=== PATIENT | female | born 1955 | race Caucasian/White ===

== ENCOUNTER 2023-09-23 16:53 | Emergency (ER) | payer MEDICARE, SELFPAY ==
[2023-09-23] VITALS (22 sets, daily range): BP systolic 122–160; BP diastolic 57–76; PULSE 88–116; RESP 11–24; TEMP 36.6; O2SAT 93–97; BMI 35.9
[2023-09-23] MEDS: EPINEPHrine 1 MG/ML 0.5 MG IM (17:03)
[2023-09-23] MEDS: methylPREDNISolone 125 MG/2 ML VIAL IV (17:05)
[2023-09-23] MEDS: diphenhydrAMINE 50 MG/ML VIAL IV (17:06)
[2023-09-23] MEDS: FAMOTIDINE 20 MG/2 ML VIAL IV (17:07)
--- NOTE | 2023-09-23 17:19 | PC.NURSE ---
Upon arrival patient has facial swelling, lip swelling, attempting to clear throat multiple times and reports difficulty breathing. Pt reports hives on neck and under breasts. Provider and multiple nurses at bedside to assess and treat. Pt reports improvement after medications given. Call light within reach and encouraged to use for any needs or any changes.
--- NOTE | 2023-09-23 17:21 | ED.ALLEREA ---
HPI - Allergic Reaction <Rosalba Hahn DO - Last Filed: 09/24/23 08:38> General Chief complaint: Allergic Reaction Stated complaint: allergic reaction to food Time Seen by Provider: 09/23/23 17:09 Source: patient and family Mode of arrival: Ambulatory History of Present Illness HPI narrative: Patient is a 67-year-old female history of diabetes presents today with anaphylactic like reaction. She is not had anaphylaxis prior. She reports that she ate a candy in about 30 minutes later started having tongue swelling lip swelling throat swelling. She is itchy all over. She has no new medications. She denies any sort of new food she is unsure what candy she ate. Related Data Previous Rx's Medication Instructions Recorded epinephrine 0.3 mg/0.3 mL 0.3 mg (0.3 mL) IM Q5-15M PRN 09/23/23 injection, auto-injector (EpiPen anaphylaxis #2 ea 2-Gibran) prednisone 20 mg tablet 20 mg PO BID 3 days #6 tabs 09/23/23 Allergies Allergy/AdvReac Type Severity Reaction Status Date / Time bee venom protein (honey bee) Allergy Severe Anaphylaxis Verified 09/23/23 17:12 codeine Allergy Severe Anaphylaxis Verified 09/23/23 17:11 latex Allergy Severe Anaphylaxis Verified 09/23/23 17:31 ginkgo biloba AdvReac Intermediate Verified 09/23/23 17:31 lisinopril AdvReac Intermediate Cough Verified 09/23/23 17:13 Hi Chew Candy Allergy Severe Anaphylaxis Uncoded 09/23/23 17:14 Patient History <Rosalba Hahn DO - Last Filed: 09/24/23 08:38> Social History Smoking Status: Never smoker Smoking Status: Never smoker alcohol intake frequency: a few times a week Substance Use Type: does not use Exam <Rosalba Hahn DO - Last Filed: 09/24/23 08:38> Initial Vital Signs Initial Vital Signs: Vital Signs Temperature 97.8 F 09/23/23 17:05 Pulse Rate 116 H 09/23/23 17:05 Respiratory Rate 24 09/23/23 17:05 Blood Pressure 159/76 H 09/23/23 17:05 Pulse Oximetry 96 09/23/23 17:05 Oxygen Delivery Method Room Air 09/23/23 17:05 GENERAL: Moderate to severe respiratory distress HEENT: Head atraumatic,EOMI, pupils reactive, face symmetric, lips are swollen tongue minimally swollen no stridor CARDIOVASCULAR: Regular rate and rhythm without murmurs, rubs or gallops. RESPIRATORY: Able to speak tachypneic no wheezing rales or rhonchi ABDOMEN: Soft, nontender. Normoactive bowel sounds all 4 quadrants. No guarding or rebound. EXTREMITIES: Normal range of motion, no clubbing or edema. Neurovascularly intact NEUROLOGICAL: Alert and oriented x4. SKIN: Warm, dry, no laceration, no petechiae, no rashes or lesions. <Daria Valdes, DO - Last Filed: 09/23/23 21:57> Initial Vital Signs Initial Vital Signs: Vital Signs Temperature 97.8 F 09/23/23 17:05 Pulse Rate 116 H 09/23/23 17:05 Respiratory Rate 24 09/23/23 17:05 Blood Pressure 159/76 H 09/23/23 17:05 Pulse Oximetry 96 09/23/23 17:05 Oxygen Delivery Method Room Air 09/23/23 17:05 Course <Rosalba Hahn, DO - Last Filed: 09/24/23 08:38> Orders Ordered: Discontinued Medications Diphenhydramine HCl (Diphenhydramine 50 Mg/Ml Vial) 50 mg IV NOW ONE Stop: 09/23/23 17:23 Last Admin: 09/23/23 17:06 Dose: 50 mg Documented By: SB Epinephrine HCl (Epinephrine 1 Mg/Ml) 0.5 mg IM NOW ONE Stop: 09/23/23 17:22 Last Admin: 09/23/23 17:03 Dose: 0.5 mg Documented By: SB Famotidine (Famotidine 20 Mg/2 Ml Vial) 20 mg IV NOW JEMIMA Last Admin: 09/23/23 17:07 Dose: 20 mg Documented By: SB Methylprednisolone (Methylprednisolone 125 Mg/2 Ml Vial) 125 mg IV NOW ONE Stop: 09/23/23 17:23 Last Admin: 09/23/23 17:05 Dose: 125 mg Documented By: SB Vital Signs Vital signs: Vital Signs - 8 hr 09/23/23 17:05 09/23/23 17:05 09/23/23 17:10 Temperature 97.8 F Pulse Rate 116 H 114 H 95 H Respiratory Rate 24 20 Blood Pressure 159/76 H Pulse Oximetry 96 97 97 Oxygen Delivery Method Room Air Room Air 09/23/23 17:10 09/23/23 17:15 09/23/23 17:15 Temperature Pulse Rate 92 H Respiratory Rate 12 Blood Pressure 155/72 H 149/57 H Pulse Oximetry 95 Oxygen Delivery Method 09/23/23 17:20 09/23/23 17:20 09/23/23 17:25 Temperature Pulse Rate 88 90 Respiratory Rate 14 22 Blood Pressure 141/65 H Pulse Oximetry 95 95 Oxygen Delivery Method Room Air 09/23/23 17:25 09/23/23 17:30 09/23/23 17:30 Temperature Pulse Rate 91 H Respiratory Rate 22 Blood Pressure 141/63 H 143/63 H Pulse Oximetry 96 Oxygen Delivery Method 09/23/23 17:35 09/23/23 17:35 09/23/23 17:40 Temperature Pulse Rate 92 H 91 H Respiratory Rate 16 18 Blood Pressure 133/63 Pulse Oximetry 95 95 Oxygen Delivery Method Room Air 09/23/23 17:40 09/23/23 17:45 09/23/23 17:45 Temperature Pulse Rate 92 H Respiratory Rate 13 Blood Pressure 145/58 H 138/62 Pulse Oximetry 95 Oxygen Delivery Method 09/23/23 17:50 09/23/23 17:50 09/23/23 17:55 Temperature Pulse Rate 93 H 96 H Respiratory Rate 23 17 Blood Pressure 148/67 H Pulse Oximetry 96 95 Oxygen Delivery Method 09/23/23 17:55 09/23/23 18:00 09/23/23 18:00 Temperature Pulse Rate 97 H Respiratory Rate 24 Blood Pressure 153/67 H 149/66 H Pulse Oximetry 96 Oxygen Delivery Method 09/23/23 18:05 09/23/23 18:05 09/23/23 18:10 Temperature Pulse Rate 97 H Respiratory Rate 22 Blood Pressure 160/70 H 142/64 H Pulse Oximetry 96 Oxygen Delivery Method 09/23/23 18:10 09/23/23 18:15 09/23/23 18:15 Temperature Pulse Rate 96 H 97 H Respiratory Rate 17 16 Blood Pressure 150/67 H Pulse Oximetry 96 95 Oxygen Delivery Method 09/23/23 18:20 09/23/23 18:20 09/23/23 18:25 Temperature Pulse Rate 97 H 97 H Respiratory Rate 11 L 20 Blood Pressure 155/68 H Pulse Oximetry 94 95 Oxygen Delivery Method 09/23/23 18:25 09/23/23 18:30 09/23/23 18:30 Temperature Pulse Rate 96 H Respiratory Rate 20 Blood Pressure 148/65 H 145/63 H Pulse Oximetry 95 Oxygen Delivery Method 09/23/23 18:35 09/23/23 18:35 09/23/23 18:40 Temperature Pulse Rate 93 H 93 H Respiratory Rate 24 14 Blood Pressure 149/65 H Pulse Oximetry 94 94 Oxygen Delivery Method 09/23/23 18:40 09/23/23 18:45 09/23/23 18:45 Temperature Pulse Rate 93 H Respiratory Rate 17 Blood Pressure 141/65 H 122/61 Pulse Oximetry 95 Oxygen Delivery Method 09/23/23 18:50 09/23/23 18:50 Temperature Pulse Rate 93 H Respiratory Rate 15 Blood Pressure 139/65 Pulse Oximetry 93 Oxygen Delivery Method <Daria Valdes, - Last Filed: 09/23/23 21:57> Orders Ordered: Discontinued Medications Diphenhydramine HCl (Diphenhydramine 50 Mg/Ml Vial) 50 mg IV NOW ONE Stop: 09/23/23 17:23 Last Admin: 09/23/23 17:06 Dose: 50 mg Documented By: FRACISCO Epinephrine HCl (Epinephrine 1 Mg/Ml) 0.5 mg IM NOW ONE Stop: 09/23/23 17:22 Last Admin: 09/23/23 17:03 Dose: 0.5 mg Documented By: FRACISCO Famotidine (Famotidine 20 Mg/2 Ml Vial) 20 mg IV NOW JEMIMA Last Admin: 09/23/23 17:07 Dose: 20 mg Documented By: FRACISCO Methylprednisolone (Methylprednisolone 125 Mg/2 Ml Vial) 125 mg IV NOW ONE Stop: 09/23/23 17:23 Last Admin: 09/23/23 17:05 Dose: 125 mg Documented By: FRACISCO Vital Signs Vital signs: Vital Signs - 8 hr 09/23/23 17:05 09/23/23 17:05 09/23/23 17:10 Temperature 97.8 F Pulse Rate 116 H 114 H 95 H Respiratory Rate 24 20 Blood Pressure 159/76 H Pulse Oximetry 96 97 97 Oxygen Delivery Method Room Air Room Air 09/23/23 17:10 09/23/23 17:15 09/23/23 17:15 Temperature Pulse Rate 92 H Respiratory Rate 12 Blood Pressure 155/72 H 149/57 H Pulse Oximetry 95 Oxygen Delivery Method 09/23/23 17:20 09/23/23 17:20 09/23/23 17:25 Temperature Pulse Rate 88 90 Respiratory Rate 14 22 Blood Pressure 141/65 H Pulse Oximetry 95 95 Oxygen Delivery Method Room Air 09/23/23 17:25 09/23/23 17:30 09/23/23 17:30 Temperature Pulse Rate 91 H Respiratory Rate 22 Blood Pressure 141/63 H 143/63 H Pulse Oximetry 96 Oxygen Delivery Method 09/23/23 17:35 09/23/23 17:35 09/23/23 17:40 Temperature Pulse Rate 92 H 91 H Respiratory Rate 16 18 Blood Pressure 133/63 Pulse Oximetry 95 95 Oxygen Delivery Method Room Air 09/23/23 17:40 09/23/23 17:45 09/23/23 17:45 Temperature Pulse Rate 92 H Respiratory Rate 13 Blood Pressure 145/58 H 138/62 Pulse Oximetry 95 Oxygen Delivery Method 09/23/23 17:50 09/23/23 17:50 09/23/23 17:55 Temperature Pulse Rate 93 H 96 H Respiratory Rate 23 17 Blood Pressure 148/67 H Pulse Oximetry 96 95 Oxygen Delivery Method 09/23/23 17:55 09/23/23 18:00 09/23/23 18:00 Temperature Pulse Rate 97 H Respiratory Rate 24 Blood Pressure 153/67 H 149/66 H Pulse Oximetry 96 Oxygen Delivery Method 09/23/23 18:05 09/23/23 18:05 09/23/23 18:10 Temperature Pulse Rate 97 H Respiratory Rate 22 Blood Pressure 160/70 H 142/64 H Pulse Oximetry 96 Oxygen Delivery Method 09/23/23 18:10 09/23/23 18:15 09/23/23 18:15 Temperature Pulse Rate 96 H 97 H Respiratory Rate 17 16 Blood Pressure 150/67 H Pulse Oximetry 96 95 Oxygen Delivery Method 09/23/23 18:20 09/23/23 18:20 09/23/23 18:25 Temperature Pulse Rate 97 H 97 H Respiratory Rate 11 L 20 Blood Pressure 155/68 H Pulse Oximetry 94 95 Oxygen Delivery Method 09/23/23 18:25 09/23/23 18:30 09/23/23 18:30 Temperature Pulse Rate 96 H Respiratory Rate 20 Blood Pressure 148/65 H 145/63 H Pulse Oximetry 95 Oxygen Delivery Method 09/23/23 18:35 09/23/23 18:35 09/23/23 18:40 Temperature Pulse Rate 93 H 93 H Respiratory Rate 24 14 Blood Pressure 149/65 H Pulse Oximetry 94 94 Oxygen Delivery Method 09/23/23 18:40 09/23/23 18:45 09/23/23 18:45 Temperature Pulse Rate 93 H Respiratory Rate 17 Blood Pressure 141/65 H 122/61 Pulse Oximetry 95 Oxygen Delivery Method 09/23/23 18:50 09/23/23 18:50 Temperature Pulse Rate 93 H Respiratory Rate 15 Blood Pressure 139/65 Pulse Oximetry 93 Oxygen Delivery Method MDM - Allergic Reaction <Rosalba Hahn, DO - Last Filed: 09/24/23 08:38> Lab Data Labs: Point of Care Testing Glucose POC 244 [facility] Narrative Medical decision making narrative: Patient 67-year-old female presents today with anaphylactic reaction. She would some sort of kidney 30 minutes later started having lip swelling and difficulty breathing. She was itching all over. Epinephrine Benadryl Solu-Medrol and Pepcid immediately given. Patient was re-evaluated by myself after about 30 minutes she seems to be doing better. She has no evidence of stridor itching is better. We will continue to monitor Patient signed out to Dr. Valdes for disposition <Daria Valdes, DO - Last Filed: 09/23/23 21:57> Lab Data Labs: Point of Care Testing Glucose POC 244 [facility] Narrative Medical decision making narrative: Patient 67-year-old female presents today with anaphylactic reaction. She would some sort of kidney 30 minutes later started having lip swelling and difficulty breathing. She was itching all over. Epinephrine Benadryl Solu-Medrol and Pepcid immediately given. Patient was re-evaluated by myself after about 30 minutes she seems to be doing better. She has no evidence of stridor itching is better. We will continue to monitor Patient signed out to Dr. Valdes for disposition. 09/23/23 1842: Patient signed out to myself by Dr. Hahn, had anaphylactic reaction received epinephrine, Benadryl, Solu-Medrol Pepcid, reportedly had improved. On my examination patient states she has much improved. She states no symptoms currently. She would like to be discharged home. She does have an epinephrine pen at home. She is agreeable to backup prescription she is unsure if her has a . We will give a short course script for prednisone that she can start tomorrow and discuss Benadryl q.6 hours PRN. Discussed return precautions. This did start after a strawberry Hi-chew candy. 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 She does have known reactions to bee stings and has epipen at home but is unsure if it's . Discharge Plan Departure Patient Disposition: Home Clinical Impression: Anaphylaxis Instructions: DI for Anaphylaxis Activity Restrictions/Additional Instructions: Please follow-up with your primary care physician or an supervisor fertilizer if you have any recurrent episodes. Take steroids will twice daily x3 days. Take your 1st dose tomorrow. You can take Benadryl 1-2 tablets every 6 hours as needed for symptoms. Prescription for EpiPen is included. Please return for new or worsening swelling of the lips, tongue or airway, difficulty with speaking, chest pain or tightness, nausea vomiting, diarrhea, rash or hives or any recurrent symptoms. Prescriptions: New prednisone 20 mg tablet 20 mg PO BID 3 Days Qty: 6 0RF epinephrine [EpiPen 2-Gibran] 0.3 mg/0.3 mL auto-injector 0.3 mg IM Q5-15M PRN (Reason: anaphylaxis) Qty: 2 0RF Rx Instructions: do not exceed 3 doses per episode Referrals: Miscellaneous,Doctor, MD [Primary Care Provider] - Stand Alone Forms: Patient Portal/API
== END 2023-09-23 19:02 | disposition home or self-care (01) ==
PROVIDERS: Emergency Provider Emergency Medicine
DX: T78.09XA Anaphylactic reaction due to other food products, initial encounter (principal); L29.8 Other pruritus
CPT/HCPCS: 82962; 96372; 96374; 96375; 99284; J0171; J1200; J2919